=== PATIENT | male | born 1950 | race African-American/Black ===

== ENCOUNTER 2018-06-02 13:09 | Day surgery (SDC) | payer BC, MEDICARE ==
[~2018-06-02] VITALS: Ht 172.7 cm; Wt 71.8 kg
[~2018-06-02 13:09] MED LIST: CIPRO 500MG TA500 MG PO; NO HOME MEDICATIONS
[2018-06-02 13:43] VITALS: BP 150/98; PULSE 60; TEMP 97.9
[2018-06-02 15:05] VITALS: BP 122/78; PULSE 82; TEMP 97.8
[2018-06-02 15:20] VITALS: BP 123/82; PULSE 62
[2018-06-02 15:35] VITALS: BP 128/75; PULSE 61
== END 2018-06-02 16:11 | disposition home or self-care (01) ==
LOC: SDCO 13:09
DX: K52.89 Other specified noninfective gastroenteritis and colitis (principal); D12.0 Benign neoplasm of cecum; Z86.010 Personal history of colon polyps; K62.5 Hemorrhage of anus and rectum; K64.0 First degree hemorrhoids
CPT/HCPCS: J2250; J3010; J7030

== ENCOUNTER 2018-12-22 07:43 | Day surgery (SDC) | payer BC ==
[~2018-12-22] VITALS: Ht 172.7 cm; Wt 72.7 kg
[2018-12-22] MEDS ORDERED: CALCIUM CARBON650 M2 PO (07:56)
[2018-12-22] MEDS ORDERED: STOOL SOFTENER100 M2 PO (07:56)
[2018-12-22] MEDS ORDERED: MULTI VITAMINS1 TAB PO (07:56)
[2018-12-22] MEDS ORDERED: MASON NATURAL2000 IU PO (07:57)
[2018-12-22] MEDS ORDERED: VITAMIN C500 MG PO (07:58)
[2018-12-22] MEDS ORDERED: VITAMIN B125000 MCG PO (07:58)
[2018-12-22] MEDS ORDERED: NATURAL E400 IU PO (07:58)
[2018-12-22] MEDS ORDERED: B-121000 MCG PO (07:59)
[2018-12-22 08:39] VITALS: BP 135/77; PULSE 60; TEMP 97.6
[2018-12-22] MEDS ORDERED: CANASA 1000MG1000 MG RC (09:19)
[2018-12-22 09:20] VITALS: BP 149/80; PULSE 56; TEMP 97.6
--- NOTE | 2018-12-22 09:20 | NUR ---
Patient brought back to bay 5. Alert and oriented, ambulated to chair without difficulty. Denies any pain or nausea. Vital signs WNL. Requesting coffee at this time. Call dale within reach, will continue to monitor.
[2018-12-22 09:35] VITALS: BP 129/80; PULSE 53
[2018-12-22 09:50] VITALS: BP 132/75; PULSE 56
--- NOTE | 2018-12-22 09:50 | NUR ---
Patient states he feels ready to go home. IV discontinued per orders, tolerated well. Discharge instructions reviewed with patient and family. All questions answered. Patient to get dressed at this time.
--- NOTE | 2018-12-22 09:58 | NUR ---
This RN escorted patient down to lobby via ambulation. To be driven home by Hugo.
== END 2018-12-22 09:58 | disposition home or self-care (01) ==
LOC: SDCO 07:43
DX: Z86.010 Personal history of colon polyps (principal); K52.9 Noninfective gastroenteritis and colitis, unspecified; K62.89 Other specified diseases of anus and rectum; K64.0 First degree hemorrhoids
CPT/HCPCS: J7030

== ENCOUNTER 2021-06-27 15:37 | Inpatient (IN) | payer MEDICARE, BC ==
[~2021-06-27] VITALS: Ht 172.7 cm; Wt 69.9 kg
[~2021-06-27 15:37] MED LIST changes: +B-121000 MCG PO; +CALCIUM CARBON650 M2 PO; +CANASA 1000MG1000 MG RC; +MASON NATURAL2000 IU PO; +MULTI VITAMINS1 TAB PO; +NATURAL E400 IU PO; +STOOL SOFTENER100 M2 PO; +VITAMIN B125000 MCG PO; +VITAMIN C500 MG PO
[2021-06-27 16:46] LABS: BASO % 0.1 % (0.0-2.0); GRAN # 5.9 K/mm3 (1.4-6.5); GRAN % 84.1 % (42.2-75.2); HEMATOCRIT 42.6 % (42.0-52.0); HEMOGLOBIN 14.6 g/dl (13.5-18.0); LYMPH # 0.8 K/mm3 (1.2-3.4); LYMPH % 11.5 % (20.0-51.0); MEAN CELL VOLUME 83 fl (80.0-100.0); MEAN CORPUSCULAR HEMOGLOBIN 28 pg (27.0-31.0); MEAN CORPUSCULAR HGB CONC 34 g/dl (33.0-37.0); MEAN PLATELET VOLUME 10.7 fl (7.4-10.4); MONO # 0.3 K/mm3 (0.1-0.6); MONO % 3.7 % (1.7-9.3); PLATELET COUNT 181 K/mm3 (130-400); RED BLOOD COUNT 5.16 M/mm3 (4.20-5.60); REDCELL DISTRIBUTION WIDTH-CV 13.2 % (11.5-14.5)
[2021-06-27 17:11] LABS: ALBUMIN 3.5 gm/dL (3.4-4.8); BILIRUBIN,TOTAL 0.7 mg/dL (0.2-1.2); CALCIUM 8.9 mg/dL (8.4-10.2); CREATININE, serum 1.28 mg/dL (0.72-1.25); POTASSIUM 4.6 mmol/L (3.5-4.5)
[2021-06-28] VITALS (326 sets, daily range): BP systolic 110–121; BP diastolic 69–70; PULSE 70–80; TEMP 97.3–99.1; O2SAT 82–99
[2021-06-28 01:13] LABS: ARTERIAL BLD GAS O2 SATURATION 94.7 % (92-100); ARTERIAL BLD GAS TCO2 CT 21.3; ARTERIAL BLOOD GAS BASE EXCESS -2.9 (-2-2); ARTERIAL BLOOD GAS HCO3 20.3 meq/L (22-26); ARTERIAL BLOOD GAS PCO2 31.2 mmHg (35-45); ARTERIAL BLOOD GAS PO2 76.7 mmHg (80-100); ARTERIAL BLOOD GAS pH 7.43 (7.35-7.45)
--- NOTE | 2021-06-28 09:58 | NUR ---
PATIENT TRANSFERED VIA WHEELCHAIR TO SURGICAL ROOM 346. CORRINE HAN ASSUMED CARE OF PATIENT AT [facility].
--- NOTE | 2021-06-28 11:58 | NUR ---
MR. GUY ARRIVED VIA ED STRETCHER ON AIRVO 60 L 88 % ON NO MEDICATIONS. PT WAS ORIENTED TO THE ICU.
[2021-06-28 14:34] LABS: HEMATOCRIT 40.8 % (42.0-52.0); HEMOGLOBIN 13.8 g/dl (13.5-18.0); MEAN CELL VOLUME 83 fl (80.0-100.0); MEAN CORPUSCULAR HEMOGLOBIN 28 pg (27.0-31.0); MEAN CORPUSCULAR HGB CONC 34 g/dl (33.0-37.0); MEAN PLATELET VOLUME 9.2 fl (7.4-10.4); PLATELET COUNT 240 K/mm3 (130-400); RED BLOOD COUNT 4.89 M/mm3 (4.20-5.60); REDCELL DISTRIBUTION WIDTH-CV 13.5 % (11.5-14.5)
[2021-06-28 14:51] LABS: C-REACTIVE PROTEIN 10.87 mg/dL (0.00-0.50); CALCIUM 8.4 mg/dL (8.4-10.2); CREATININE, serum 0.9 mg/dL (0.72-1.25); MAGNESIUM 2.3 mg/dL (1.6-2.6); POTASSIUM 4.4 mmol/L (3.5-4.5)
--- NOTE | 2021-06-28 20:20 | NUR ---
Assessment complete and charted. Denies neesd. Call light in reach.
[2021-06-29] VITALS (653 sets, daily range): BP systolic 121–134; BP diastolic 75–88; PULSE 86–99; TEMP 97.9–99.3; O2SAT 68–100
--- NOTE | 2021-06-29 03:57 | NUR ---
PATIENT PLACED ON BIPAP AROUND 0315. PATIENT SATURATIONS 87% ON AIRVO. PATIENT ON 14 OVER 8 WITH 75%FIO2
[2021-06-29 05:40] LABS: BASO % 0.1 % (0.0-2.0); GRAN # 8.4 K/mm3 (1.4-6.5); GRAN % 85.7 % (42.2-75.2); HEMATOCRIT 39.8 % (42.0-52.0); LYMPH # 1.1 K/mm3 (1.2-3.4); LYMPH % 10.9 % (20.0-51.0); MEAN CELL VOLUME 87 fl (80.0-100.0); MEAN CORPUSCULAR HEMOGLOBIN 28 pg (27.0-31.0); MEAN CORPUSCULAR HGB CONC 33 g/dl (33.0-37.0); MEAN PLATELET VOLUME 9.5 fl (7.4-10.4); MONO # 0.3 K/mm3 (0.1-0.6); MONO % 2.9 % (1.7-9.3); PLATELET COUNT 278 K/mm3 (130-400); RED BLOOD COUNT 4.59 M/mm3 (4.20-5.60); REDCELL DISTRIBUTION WIDTH-CV 13.5 % (11.5-14.5)
[2021-06-29 05:57] LABS: ALBUMIN 2.5 gm/dL (3.4-4.8); BILIRUBIN,TOTAL 0.6 mg/dL (0.2-1.2); CALCIUM 7.4 mg/dL (8.4-10.2); CREATININE, serum 0.83 mg/dL (0.72-1.25); MAGNESIUM 1.9 mg/dL (1.6-2.6); POTASSIUM 3.8 mmol/L (3.5-4.5); TOTAL PROTEIN 6.1 gm/dL (6.2-8.1)
--- NOTE | 2021-06-29 06:11 | NUR ---
Patient started on bipap during night. Tolerating well. Resting in bed this Am. Call light in reach.
--- NOTE | 2021-06-29 07:19 | NUR ---
Report given to CORRINE Hooks
--- NOTE | 2021-06-29 13:13 | NUR ---
1230 pt placed on AirVo 60L/min - 90%FiO2 for lunch. Pt ate 100% of meal without difficulty. SpO2 while on AirVo 88-93% 1310 pt requested to be placed back on BiPAP
--- NOTE | 2021-06-29 13:38 | NUR ---
Forming Roll Operator contacted patient's daughter, Delores (ph#[phone]) to complete initial intake as patient is on bipap and in contact isolation for covid. Patient lives in [place] with his , Lin (ph#[phone]). SW had attempted to call Lin earlier in the day and left a voicemail. Patient sees Dr. Noe for primary care and obtains medications from [facility] in [place] with no difficulties. Patient does not use any DME and is independent with ADLS. Delores remarks that patient is currently employed. Patient does not have Advance Directives and legal next of kin would be his . SW will continue to follow for discharge needs.
--- NOTE | 2021-06-29 17:42 | NUR ---
Pt's keys and $1,480 carpenter given to pt's son as requested by pt. Pt continues to refuse robitussin antitussive despite almost continuous cough when taking break from BiPAP and placed on AirVo. Pt's daughter and son updated and informed pt is refusing antitussive - family will call during next BiPAP break to encourage pt to take any and all medications that will help pt.
--- NOTE | 2021-06-29 20:20 | NUR ---
Assessment complete and charted. Denies needs. Call light in reach.
[2021-06-30] VITALS (714 sets, daily range): BP systolic 130–146; BP diastolic 81–93; PULSE 68–94; TEMP 97.2–98.8; O2SAT 71–100
--- NOTE | 2021-06-30 05:46 | NUR ---
Patient remained on bipap throughout night. Otherwise uneventful. Call light in reach.
[2021-06-30 06:31] LABS: HEMATOCRIT 42.8 % (42.0-52.0); HEMOGLOBIN 14.3 g/dl (13.5-18.0); MEAN CELL VOLUME 85 fl (80.0-100.0); MEAN CORPUSCULAR HEMOGLOBIN 28 pg (27.0-31.0); MEAN CORPUSCULAR HGB CONC 33 g/dl (33.0-37.0); PLATELET COUNT 297 K/mm3 (130-400); RED BLOOD COUNT 5.03 M/mm3 (4.20-5.60); REDCELL DISTRIBUTION WIDTH-CV 13.2 % (11.5-14.5)
[2021-06-30 06:39] LABS: C-REACTIVE PROTEIN 7.77 mg/dL (0.00-0.50); CALCIUM 8.7 mg/dL (8.4-10.2); CREATININE, serum 0.89 mg/dL (0.72-1.25); POTASSIUM 4.6 mmol/L (3.5-4.5)
--- NOTE | 2021-06-30 07:25 | NUR ---
Report given to Amy Miranda
--- NOTE | 2021-06-30 08:00 | NUR ---
ASSUMED CARE FROM GEOFFREY CASTLE. CHECK ALL IV SITES AND SETTING ON BIPAP AND AIRVO. PT REQUESTED TO ORDER BREAKFAST. PATIENT IS COMFORTABLE AND IN NO APPARENT DISTRESS. WILL CONTINUE TO MONITOR FOR INCREASE OXYGEN NEED.
[2021-06-30 08:13] LABS: LYMPHOCYTE 9 % (20.0-51.0); NEUTROPHILS 89 % (42.0-75.2)
[2021-06-30 08:14] LABS: PLATELET ESTIMATE NORMAL (NORMAL)
--- NOTE | 2021-06-30 12:56 | NUR ---
Chaplain wall and offered support with patient.
--- NOTE | 2021-06-30 17:22 | NUR ---
MR. PINA RIGHT UPPER ARM PICC WILL NOT PULL BACK BLOOD.
[2021-06-30 18:22] LABS: BILIRUBIN,DIRECT 0.3 mg/dL (0.0-0.5); BILIRUBIN,TOTAL 0.6 mg/dL (0.2-1.2); TOTAL PROTEIN 7.5 gm/dL (6.2-8.1)
[2021-06-30 18:27] LABS: ARTERIAL BLD GAS TCO2 CT 23.8; ARTERIAL BLOOD GAS BASE EXCESS 0.2 (-2-2); ARTERIAL BLOOD GAS HCO3 22.8 meq/L (22-26); ARTERIAL BLOOD GAS PCO2 31.6 mmHg (35-45); ARTERIAL BLOOD GAS PO2 52.7 mmHg (80-100); ARTERIAL BLOOD GAS pH 7.48 (7.35-7.45)
--- NOTE | 2021-06-30 19:42 | NUR ---
Resting in bed. Denies needs. Assessment complete and charted. Patient alert and orientated x4
[2021-06-30 22:21] LABS: ARTERIAL BLD GAS O2 SATURATION 93.1 % (92-100); ARTERIAL BLD GAS TCO2 CT 29.1; ARTERIAL BLOOD GAS BASE EXCESS 3.5 (-2-2); ARTERIAL BLOOD GAS HCO3 27.9 meq/L (22-26); ARTERIAL BLOOD GAS PCO2 41.3 mmHg (35-45); ARTERIAL BLOOD GAS PO2 70.4 mmHg (80-100); ARTERIAL BLOOD GAS pH 7.45 (7.35-7.45)
[2021-07-01] VITALS (735 sets, daily range): BP systolic 122–150; BP diastolic 75–96; PULSE 80–148; TEMP 98.4–99.4; O2SAT 60–100
[2021-07-01 04:58] LABS: ARTERIAL BLOOD GAS BASE EXCESS 2.5 (-2-2); ARTERIAL BLOOD GAS HCO3 26.2 meq/L (22-26); ARTERIAL BLOOD GAS PCO2 37.8 mmHg (35-45); ARTERIAL BLOOD GAS PO2 72.2 mmHg (80-100); ARTERIAL BLOOD GAS pH 7.45 (7.35-7.45)
[2021-07-01 05:16] LABS: BASO % 0.2 % (0.0-2.0); GRAN # 10.5 K/mm3 (1.4-6.5); GRAN % 89.4 % (42.2-75.2); HEMATOCRIT 41.8 % (42.0-52.0); LYMPH # 0.8 K/mm3 (1.2-3.4); LYMPH % 7.1 % (20.0-51.0); MEAN CELL VOLUME 86 fl (80.0-100.0); MEAN CORPUSCULAR HEMOGLOBIN 29 pg (27.0-31.0); MEAN CORPUSCULAR HGB CONC 34 g/dl (33.0-37.0); MEAN PLATELET VOLUME 9.6 fl (7.4-10.4); MONO # 0.3 K/mm3 (0.1-0.6); MONO % 2.4 % (1.7-9.3); PLATELET COUNT 288 K/mm3 (130-400); RED BLOOD COUNT 4.86 M/mm3 (4.20-5.60); REDCELL DISTRIBUTION WIDTH-CV 13.3 % (11.5-14.5)
[2021-07-01 05:34] LABS: ALBUMIN 2.8 gm/dL (3.4-4.8); BILIRUBIN,TOTAL 0.7 mg/dL (0.2-1.2); CALCIUM 8.8 mg/dL (8.4-10.2); CREATININE, serum 0.83 mg/dL (0.72-1.25); MAGNESIUM 2.1 mg/dL (1.6-2.6); POTASSIUM 4.3 mmol/L (3.5-4.5)
--- NOTE | 2021-07-01 05:55 | NUR ---
Patient remained on bipap throughout night. Patient is alert and orientated. Denied needs this AM. Would like breakfast when kitchen is open. Call light in reach.
--- NOTE | 2021-07-01 07:05 | NUR ---
Report given to CORRINE Chadwick
--- NOTE | 2021-07-01 07:11 | NUR ---
RECEIVED BEDSIDE SHIFT REPORT FROM CORRINE HALE. PATIENT HAS BEEN MORE COMFORTABLE ON BIPAP ALL NIGHT AND NURSE REPORTS THAT PATIENT STANDS INDEPENDENTLY TO USE URINAL. VITAL SIGNS STABLE FOR PATIENT. CHUCHO PICC AND 20g PERIPHERAL STILL IN PLACE AND PATENT IN [place]. REPORT STATED THERE WAS DIFFICULTY WITH [place]. WILL ASSESS. PATIENT CURRENTLY RESTING IN BED WITH EYES CLOSED.
[2021-07-01 14:20] LABS: COLLECTION METHOD CLEAN CATCH
[2021-07-01 15:18] LABS: PH 5 (5-8); URINE APPEARANCE Hazy (CLEAR/HAZY); URINE COLOR Yellow (YELLOW); URINE GLUCOSE 3+ (NEGATIVE); URINE PROTEIN(semi-quant) Negative (NEGATIVE)
[2021-07-01 15:19] LABS: URINE BILIRUBIN Negative (NEGATIVE); URINE BLOOD Negative (NEGATIVE); URINE KETONE Negative (NEGATIVE); URINE LEUKOCYTE ESTERASE Negative (NEGATIVE); URINE NITRATE Negative (NEGATIVE); URINE UROBILINOGEN Negative (NEGATIVE)
[2021-07-01 16:10] LABS: SQUAMOUS EPITHELIAL None Seen /hpf (0-10); URINE BACTERIA None Seen (NONE SEEN); URINE RBC None Seen /hpf (0-2)
--- NOTE | 2021-07-01 19:51 | NUR ---
Patient sitting on the side of the bed. Currently wearing BiPap with scuba mask at 100% FiO2 , tolerating well. Oral temperature of 99.4 F, with resting pulse rate in 120s, sinus rhythm. Patient briefly tachycardic up to 140s with activity. All other vitals within normal limits. Patient denies any pain, but reports severe thirst and calls several times for breaks from BiPap for sips of water.
--- NOTE | 2021-07-01 20:24 | NUR ---
Patient attempting to climb out of bed and tearing off BiPap mask stating, "I can't breathe," with oxygen saturation 95-99%. Per report received from [facility], patient has been tachycardic ranging 110-120s all shift. Patient HR currently 140s and rising with episodes of panic. ANUPAMA physician notified. Received orders for a one time dose of ativan now and to initiate a precedex drip. Hospitalist, Lynne, afua.
[2021-07-02] VITALS (664 sets, daily range): BP systolic 102–126; BP diastolic 69–81; PULSE 80–108; TEMP 97.2–99.8; O2SAT 50–100
[2021-07-02 06:05] LABS: HEMATOCRIT 42.5 % (42.0-52.0); HEMOGLOBIN 13.9 g/dl (13.5-18.0); MEAN CELL VOLUME 86 fl (80.0-100.0); MEAN CORPUSCULAR HEMOGLOBIN 28 pg (27.0-31.0); MEAN CORPUSCULAR HGB CONC 33 g/dl (33.0-37.0); MEAN PLATELET VOLUME 9.5 fl (7.4-10.4); RED BLOOD COUNT 4.93 M/mm3 (4.20-5.60); REDCELL DISTRIBUTION WIDTH-CV 13.2 % (11.5-14.5)
[2021-07-02 06:08] LABS: PLATELET COUNT 173 K/mm3 (130-400)
[2021-07-02 06:23] LABS: CALCIUM 8.6 mg/dL (8.4-10.2); CREATININE, serum 1.34 mg/dL (0.72-1.25); MAGNESIUM 2.2 mg/dL (1.6-2.6); POTASSIUM 4.5 mmol/L (3.5-4.5)
[2021-07-02 06:41] LABS: BAND 17 % (0-10); LYMPHOCYTE 26 % (20.0-51.0); NEUTROPHILS 50 % (42.0-75.2)
[2021-07-02 06:42] LABS: PLATELET ESTIMATE NORMAL (NORMAL)
--- NOTE | 2021-07-02 20:11 | NUR ---
Patient did well today and was able to switch to Airvo for meals and maintain sats in the upper 80s/lower 90s. Decreased Precedex and turned off this morning per Dr. Lott and patient tolerated the BiPAP while wearing it; his heart rate did become tachycardic, however, and was over 100 most of the day once Precedex was stopped.
[2021-07-03] VITALS (652 sets, daily range): BP systolic 132–151; BP diastolic 87–99; PULSE 84–109; TEMP 97.2–98.2; O2SAT 52–100
[2021-07-03 05:00] LABS: ARTERIAL BLOOD GAS PCO2 38.4 mmHg (35-45); ARTERIAL BLOOD GAS PO2 65.7 mmHg (80-100); ARTERIAL BLOOD GAS pH 7.47 (7.35-7.45)
[2021-07-03 05:01] LABS: ARTERIAL BLD GAS O2 SATURATION 92.6 % (92-100); ARTERIAL BLOOD GAS BASE EXCESS 3.6 (-2-2); ARTERIAL BLOOD GAS HCO3 27.3 meq/L (22-26)
[2021-07-03 06:17] LABS: HEMATOCRIT 41.9 % (42.0-52.0); HEMOGLOBIN 13.8 g/dl (13.5-18.0); MEAN CELL VOLUME 86 fl (80.0-100.0); MEAN CORPUSCULAR HEMOGLOBIN 28 pg (27.0-31.0); MEAN CORPUSCULAR HGB CONC 33 g/dl (33.0-37.0); MEAN PLATELET VOLUME 10.2 fl (7.4-10.4); PLATELET COUNT 197 K/mm3 (130-400); RED BLOOD COUNT 4.88 M/mm3 (4.20-5.60); REDCELL DISTRIBUTION WIDTH-CV 13.2 % (11.5-14.5)
[2021-07-03 06:38] LABS: ALBUMIN 2.6 gm/dL (3.4-4.8); BILIRUBIN,TOTAL 0.7 mg/dL (0.2-1.2); CALCIUM 8.4 mg/dL (8.4-10.2); CREATININE, serum 0.92 mg/dL (0.72-1.25); MAGNESIUM 2.3 mg/dL (1.6-2.6); POTASSIUM 4.3 mmol/L (3.5-4.5); TOTAL PROTEIN 6.8 gm/dL (6.2-8.1)
[2021-07-03 06:44] LABS: BILIRUBIN,DIRECT 0.3 mg/dL (0.0-0.5)
[2021-07-03 07:52] LABS: BAND 16 % (0-10); LYMPHOCYTE 7 % (20.0-51.0); NEUTROPHILS 77 % (42.0-75.2); PLATELET ESTIMATE NORMAL (NORMAL)
--- NOTE | 2021-07-03 08:41 | NUR ---
The patient remains on the bipap. SW attempted to contact the patient's to update. She did not answer. SW then contacted the patient's daughter, Delores, to follow up. Delores would just like a clinical update from the RN or doctor about how the patient is doing and it he is improving or not. SW to notify the patient's RN.
--- NOTE | 2021-07-03 11:42 | NUR ---
PATIENT DOING WORSE TODAY FAR EATING ON AIRVO IS CONCERNED; HE HAD MULTIPLE BOUTS OF COUGHING AND HIS O2 SATS WERE MID TO LOW 80S TO HIGH 70S, WHICH IS WORSE THAN IT WAS YESTERDAY. WILL ASK DR. CEJA WHAT HE THINKS ABOUT PATIENT CONTINUING EATING SOLID FOODS.
--- NOTE | 2021-07-03 13:30 | NUR ---
Patient did not do well this morning while eating breakfast; he had multiple coughing fits and desatted while on Airvo, at times into the high 70%s. Called Dr. Lott who wanted him to stop eating solid foods and have TPN started; called anne and relayed this information. Anne wanted to have speech onboard as well for a swallow study; called Janelle with
--- NOTE | 2021-07-03 19:15 | NUR ---
Received report from CORRINE Brumfield.
--- NOTE | 2021-07-03 21:30 | NUR ---
Patient resting quietly in bed. Continues to wear BiPap at 80% FiO2 ; patient tolerating relatively well. Patient tachycardic ranging 110-120s. Other vitals within normal limits. He denies any pain but reports severe thirst and requests frequent breaks from BiPap for ice water. Patient tolerates ice chips and water well without difficulty or coughing. Patient desats 60-70s when removing mask but recovers to mid-high 90s fairly quickly.
[2021-07-04] VITALS (59 sets, daily range): BP systolic 53–135; BP diastolic 38–98; PULSE 111–124; TEMP 97.4–98.6; O2SAT 89–100
[2021-07-04 04:29] LABS: ARTERIAL BLD GAS O2 SATURATION 94.9 % (92-100); ARTERIAL BLD GAS TCO2 CT 24.7; ARTERIAL BLOOD GAS BASE EXCESS -0.3 (-2-2); ARTERIAL BLOOD GAS HCO3 23.6 meq/L (22-26); ARTERIAL BLOOD GAS PCO2 36.3 mmHg (35-45); ARTERIAL BLOOD GAS PO2 73.7 mmHg (80-100); ARTERIAL BLOOD GAS pH 7.43 (7.35-7.45)
[2021-07-04 05:30] LABS: HEMATOCRIT 46.2 % (42.0-52.0); HEMOGLOBIN 15.1 g/dl (13.5-18.0); MEAN CELL VOLUME 86 fl (80.0-100.0); MEAN CORPUSCULAR HEMOGLOBIN 28 pg (27.0-31.0); MEAN CORPUSCULAR HGB CONC 33 g/dl (33.0-37.0); MEAN PLATELET VOLUME 10.4 fl (7.4-10.4); PLATELET COUNT 206 K/mm3 (130-400); RED BLOOD COUNT 5.36 M/mm3 (4.20-5.60); REDCELL DISTRIBUTION WIDTH-CV 13.2 % (11.5-14.5)
[2021-07-04 05:43] LABS: C-REACTIVE PROTEIN 10.75 mg/dL (0.00-0.50); CALCIUM 8.7 mg/dL (8.4-10.2); CREATININE, serum 1.07 mg/dL (0.72-1.25); MAGNESIUM 2.4 mg/dL (1.6-2.6); PHOSPHOROUS 2.9 mg/dL (2.3-4.7); POTASSIUM 4.2 mmol/L (3.5-4.5)
[2021-07-04 06:39] LABS: BAND 11 % (0-10); LYMPHOCYTE 2 % (20.0-51.0); NEUTROPHILS 86 % (42.0-75.2); PLATELET ESTIMATE NORMAL (NORMAL)
--- NOTE | 2021-07-04 09:14 | NUR ---
germination worker contacted daughter, Delores, and provided education on legal next of kin and that a durable power of assistant county attorney for health care can be completed if patient so wishes to do this. Delores stated that her mother, patient's spouse, mostly speaks welsh and that at this time, the daughters are receiving information from ICU/physician teams. A family meeting is expected today (in person) with spouse, two daughters and one son.
--- NOTE | 2021-07-04 14:29 | NUR ---
FAMILY MEETING STARTED AT 1220. PRIOR TO THAT THE PATIENT WAS ADAMANT THAT HE WANTED TO TAKE HIS BIPAP MASK OFF AND GO HOME. HE IS ALERT AND ORIENTED AND UNDERSTAND THAT THAT MIGHT KILL HIM. HE AGREES AFTER MANY CONVERSATIONS TO LEAVE THE BIPAP MASK ON UNTIL HIS FAMILY ARRIVES FOR THE FAMILY MEETING. 2 DAUGHTERS, A SON AND HIS CONSTRUCTION MILLWRIGHT ARRIVED AT 1220. MANY QUESITONS ANSWERED BY MYSELF, DR. LEI, GOMEZ PALLIATIVE CARE RN AND DONAL PALLITAIVE CARE RN ABOUT THE PATIENTS CURRENT CONDITION WELL THEIR OPTIONS FOR CARE. AT THIS TIME 1429 THE PATIENT CONTINUES TO WANT TO TAKE HIS BIPAP MASK OFF AND GO HOME.
--- NOTE | 2021-07-04 17:00 | NUR ---
1610 FAMILY MEETING WITH AUDRA URRUTIA, SOCIAL WORK, LOUIS CASH, TRAFFIC SUPERVISOR, ZEUS CASTLE, AND MYSELF. THE 2 DAUGHTERS AND SON IN PERSON, ANOTHER SON AND ON THE PHONE. ARE ASKING IF THEY CAN TAKE THE PATIENT HOME AFTER HE TAKES THE BIPAP OFF. DISCUSSION WAS HAD ABOUT WHAT THAT WOULD BE LIKE FOR THEM WELL THE PATIENT AT THIS TIME AND THAT IT WOULD BE UNSAFE FOR THE PATIENT. THE LOGISTICS OF HAVING THE PATIENT OUTSIDE THE HOSPITAL WAS ALSO DISCUSSED. WE ALSO DISCUSSED THAT WE ARE NOT ALLOWED BY LAW TO GO AGAINST THE PATIENT'S WISHES. IT IS A PATIENT RIGHT TO REFUSE. SINCE HE IS IN HIS RIGHT MIND, ALERT AND ORIENTED, HE STILL MANTAINS THE RIGHT TO REFUSE. THE PATIENT HAS BEEN VERY ADAMANT THAT HE DOES NOT WANT TO WEAR HIS BIPAP ANY MORE. WHEN THIS DISCUSSION IS HAD WITH THE PATIENT THE PATIENT STATES "I KNOW I WILL . I JUST WANT TO GO HOME ANYWAY". AT THE END OF THE CONVERSATION (1700) THE FAMILY CAME TO THE CONCLUSION THAT THEY WOULD ALLOW THE PATIENT TO TAKE HIS MASK OFF WITHOUT COERSCING HIM TO PUT IT BACK ON. MEDICATIONS CAN BE GIVEN IF NEEDED TO MAKE HIM COMFORTABLE. THE PATIENTS WILL COME TO THE BEDSIDE. DR. LEI NOTIFIED OF THIS DECISION. AND COMFORT CARE ORDERS WERE ENTERED/VERIFIED.
--- NOTE | 2021-07-04 17:21 | NUR ---
(3822 07/04/21)I WAS PASSING BY THE PATIENTS ROOM HEADING TO ANOTHER ROOM IN THE ICU WHEN THE PT WAVED ME IN. I WENT IN TO THE ROOM AFTER GOWNING UP, AND THE PATIENT SAID HE WAS GOING TO LEAVE AND TOLD ME TO TAKE HIS BIPAP MASK OFF. I EXPLAINED THAT HE WOULD NOT MAKE IT TO THE DOOR DUE TO HIS CRITICAL CONDITION AND DEPENDENCE ON HIGH OXYGEN LEVELS. HE SAID THAT HE DIDNT CARE, HE WANTED TO AND THAT WAS HIS CHOICE. HE SAID THAT GOD WAS CALLING HIM HOME AND HE HAD MADE THE CHOICE TO NO LONGER RECEIVE CARE. I EXPLAINED THAT I COULD TELL THE ICU DIRECTOR BUT I WAS NOT ABLE TO TAKE THE MASK OFF AT THAT TIME. HE CALMED DOWN A BIT AND SHOOK HIS HEAD IN AGGREEMENT. I LEFT AND EXPLAINED TO ZEUS JIMENEZ AND SANDIP SAGASTUME WHAT HAD HAPPENED AND THEN CONTINUED ON.
--- NOTE | 2021-07-04 18:30 | NUR ---
This morning while getting vitals and doing 0800 assessment, Dr. Lott came in and spoke with the patient, informing him that the next step in his care would be to be put on a ventilator; patient repeatedly shook his head no, which Dr. Lott then confirmed verbally with the patient that he was refusing to be put on the ventilator. Patient stated that he "had morgan in his God", and stated that he "wanted to see his God". I had many conversations throughout the morning with the patient who was insisting that the mask be removed and that he wanted to go home. When asked if he was saying that he wanted to leave, he stated "yes, I want to go home". I explained to the patient that we are not able to keep him here, but that we did not feel that it was in his best interest for him to go home, so if he left he would be leaving against medical advice, and would be required to sign AMA paperwork. Family had been called at that point and asked to come in to have a family meeting to discuss plan of care, which was scheduled for noon. The rest of the morning was spent having multiple conversations with the patient about why he needed to keep the BiPAP mask on, and that his family was coming at noon and wanted to talk to him, and that he needed to keep the mask on so he was able to talk to them when he arrived. He stated that he "wanted to go home" and that we should tell his family "to turn around" because he "had morgan in his God". He also repeatedly stated throughout the morning that he was "ready to see his God" and that his "God is almighty" and that he "has been here before and his God took care of him". He decided to change his code status to DNR, and did not want any interventions done to save him should he code, and he also was still insisting that he was leaving AMA. Family arrived shortly after 1200 and was allowed to go into the patient's room to discuss what the plan was going to be going forward. It is my understanding that the patient was insisting that he was not going to be intubated, his son was insisting that everything be done, and that his daughters weren't sure how to proceed. Tiffanie then spent several hours in the patient's room answering all their questions in regards to care.
[2021-07-04 19:52] LABS: ARTERIAL BLD GAS TCO2 CT 26.5; ARTERIAL BLOOD GAS BASE EXCESS 1.8 (-2-2); ARTERIAL BLOOD GAS HCO3 25.4 meq/L (22-26); ARTERIAL BLOOD GAS PCO2 36.5 mmHg (35-45); ARTERIAL BLOOD GAS PO2 76.8 mmHg (80-100); ARTERIAL BLOOD GAS pH 7.46 (7.35-7.45)
--- NOTE | 2021-07-04 20:00 | NUR ---
THREE OF PT'S CHILDREN AND AT THE BEDSIDE. PER REPORT, PT HAD BEEN UNDECIDED ABOUT INTUBATION TODAY. AT THIS TIME, PT IS NOT ORIENTED TO TIME/PLACE. MELECIOY WANTS INTUBATION, AND PT AGREES. PLAN IN PLACE TO INTUBATE SOON, ANESTHESIA CALLED. MANDEEP SALES OPERATIONS COORDINATOR ON FLOOR WELL AND HAS TALKED TO FAMILY. CONSENT GIVEN FOR INTUBATION AND ARTERIAL LINE PLACEMENT. PT CURRENTLY ON BIPAP, RESTING WITH EYES CLOSED. PREPARING ROOM FOR INTUBATION, WILL FOLLOW.
--- NOTE | 2021-07-04 20:00 | NUR ---
RUE NOTED TO BE SWOLLEN AND FIRM. NOTIFIED ANAHI KAUFMAN. VENOUS STUDY ORDERED FOR NEXT AM. BOTH LUMENS OF PICC LINE FLUSHING AND HAVE BLOOD RETURN.
--- NOTE | 2021-07-04 20:12 | NUR ---
mold release worker along with Carolyn risk management, and Tiffanie Devine(ICU director and dealer relationship manager) met with patient's son and two daughters. Patient's son that lives in [place] was on speaker phone. Worker and nurses discussed patient's verbalized wishes to have the bipap removed and his understanding of possible due to removal of the bi pap and the hospital's need to honor patient's wishes. Children discussed their need to convince patient to keep bipap on so that he could have a "chance of survival". Staff offered emotional support and education on patient's illness as children explored taking patient home AMA due to patient's verbalized request to return home this date. Children came to the conclusion that after their mother arrived at the hospital, they would spend time with patient and discuss possible medication use while in comfort care.
--- NOTE | 2021-07-04 20:57 | NUR ---
Patient and patients family had all agreed that he was going to be going comfort care and plans were in place to proceed accordingly. Morphine and ativan had been ordered, and we were waiting on the patient's to arrive so we could take the mask off and give comfort care meds. Patient's and children were in the room, I proceeded to take off the mask, then while going to get the meds, was asked to hurry back over and put the mask back on. Complied with patient's wishes, placed the biPAP back on him, and asked him if he recalled the conversation that he had with Dr. Lott this morning in regards to being intubated. Patient shook his head yes, and to verify, I asked the patient if he remembered the conversation specifically in regards to being put on a ventilator, which was the machine that was going to breathe for him, and that tubes would be placed down his throat and he would be sedated. He repeated that yes, he remembered. I then asked patient if he wanted to be intubated, and he stated yes. I also asked about his code status, specifically, if he were to stop breathing and/or his heart were to stop beating, does he want CPR and everything that goes along with us resuscitating him, to which he nodded his head and said yes. I left the patient's room to inform the charge nurse that he had changed his mind and wanted to be intubated, and then went back into patients room to tell family that they would need to leave so we could start the procedure. While in the room, the patient again stated that he wanted to take the mask off, and the family told me that he "keeps changing his mind" but that he "already told me that he wanted to be placed on the ventilator". I explained to the family that just because he told me previously that he wanted to be intubated, he was allowed to change his mind, and that I had to go by what he wanted to do, and that if he changed his mind, he was allowed to do so and we had to respect his wishes. Left the patients room to see how to proceed; anesthesia not notifed or told to come over for intubation as patient was actively trying to take his mask off while I was in the room. At this point it was after shift change and I still needed to give report to Marivel on both my patients. I did not go back into the room after that, and Marivel took over care.
--- NOTE | 2021-07-04 21:00 | NUR ---
MEDS GIVEN PER ANESTHESIA FOR INTUBATION FOLLOWS, SUCCINYLCHOLINE 100MG, LIDOCAINE 100MG, PROPOFOL 100MG, VERSED 2MG, FENTANYL 50MCG, ROCURONIUM 5MG. ALL BROUGHT BY AND ADMINISTERED BY PROVIDER.
[2021-07-04 22:28] LABS: ARTERIAL BLD GAS O2 SATURATION 99.5 % (92-100); ARTERIAL BLD GAS TCO2 CT 27.2; ARTERIAL BLOOD GAS BASE EXCESS 1.7 (-2-2); ARTERIAL BLOOD GAS PCO2 39.7 mmHg (35-45); ARTERIAL BLOOD GAS pH 7.43 (7.35-7.45)
[2021-07-04 22:29] LABS: ARTERIAL BLOOD GAS PO2 256.4 mmHg (80-100)
--- NOTE | 2021-07-04 22:30 | NUR ---
PT'S FAMILY LEFT ROOM BY 2019, CONSENTS SIGNED FOR ARTERIAL LINE PLACEMENT AND INTUBATION. LUCIANO IRAHETA CRNA ARRIVED BY 2049. PT INTUBATED AT 2099 WITH 7.5 ET TUBE, 23 AT THE LIP. OG ALSO PLACED, 50 AT THE LIP. CHEST XRAY VERIFIED PLACEMENT OF BOTH. LEVOPHED INITIATED RIGHT AWAY DUE TO SIGNIFICANT BP DROP. FIRE CONTROLMAN ALSO ADMINISTERED NEOSYNEPHRINE. PROPOFOL AND FENTANYL INITIATED AT 2114, PT COUGHING/FIGHTING VENT. CONTINUED TO TITRATE TO GOAL SEDATION. AT TIME OF 2229, BP STABLE WITH SBP > 90, BRIGIDO SCORE -1 TO -2. HUNTER CATHETER PLACED, URINE RETURN OF ABOUT 20ML. PT HAD JUST VOIDED PRE INTUBATION OF 300ML. BILAT WRIST RESTRAINTS IN PLACE FOR PT'S SAFETY. WILL CONTINUE TO MONITOR, TURN PT AND PERFORM ORAL CARE ORDERED.
--- NOTE | 2021-07-04 22:30 | NUR ---
LUCIANO IRAHETA TAXICAB COORDINATOR ATTEMPTED ARTERIAL LINE X3, UNSUCCESSFUL. WILL CONTINUE TO MONITOR AND TITRATE PRESSORS VIA NIBP TONIGHT.
[2021-07-05] VITALS (296 sets, daily range): BP systolic 84–115; BP diastolic 65–90; PULSE 89–112; TEMP 97.6–99.6; O2SAT 95–100
[2021-07-05 04:07] LABS: ARTERIAL BLD GAS O2 SATURATION 94.4 % (92-100); ARTERIAL BLD GAS TCO2 CT 26.8; ARTERIAL BLOOD GAS BASE EXCESS 0.6 (-2-2); ARTERIAL BLOOD GAS HCO3 25.6 meq/L (22-26); ARTERIAL BLOOD GAS PCO2 42.2 mmHg (35-45); ARTERIAL BLOOD GAS PO2 76.7 mmHg (80-100)
[2021-07-05 05:47] LABS: HEMATOCRIT 39.5 % (42.0-52.0); MEAN CELL VOLUME 86 fl (80.0-100.0); MEAN CORPUSCULAR HEMOGLOBIN 28 pg (27.0-31.0); MEAN CORPUSCULAR HGB CONC 33 g/dl (33.0-37.0); MEAN PLATELET VOLUME 10.6 fl (7.4-10.4); PLATELET COUNT 153 K/mm3 (130-400); RED BLOOD COUNT 4.59 M/mm3 (4.20-5.60); REDCELL DISTRIBUTION WIDTH-CV 13.3 % (11.5-14.5)
[2021-07-05 05:50] LABS: HEMOGLOBIN 12.9 g/dl (13.5-18.0)
[2021-07-05 05:59] LABS: CALCIUM 8.1 mg/dL (8.4-10.2); CREATININE, serum 1.2 mg/dL (0.72-1.25); POTASSIUM 4.8 mmol/L (3.5-4.5)
[2021-07-05 06:24] LABS: ANISOCYTOSIS 1+; BAND 7 % (0-10); LYMPHOCYTE 4 % (20.0-51.0); NEUTROPHILS 86 % (42.0-75.2)
--- NOTE | 2021-07-05 07:22 | NUR ---
RECEIVED BEDSIDE SHIFT REPORT FROM CORRINE DODGE. PATIENT IS SEDATED AND INTUBATED WITH RIGHT UPPER ARM PICC STILL IN PLACE. PER REPORT, PATIENT SHOULD BE GETTING DOPPLER ULTRASOUND ON RIGHT ARM TODAY FOR SWELLING AND STIFFNESS. PATIENT IS HYPORTENSIVE AND TACHYCARDIC CURRENTLY. HUNTER CATHETER IN PLACE PATENT AND DRAINING TO GRAVITY.
--- NOTE | 2021-07-05 08:20 | NUR ---
DR. CEJA AT BEDSIDE. DISCUSSED EVENTS OF PREVIOUS NIGHT AND NEW FINDINGS OF RIGHT ARM SWELLING. DOPPLER ORDERED LAST NIGHT. ORDERS RECEIVED. TREATMENT PLAN IN PROGRESS.
--- NOTE | 2021-07-05 08:30 | NUR ---
PICC intact right upper arm with large amount of dried reddish drainage noted on disk, sterile dressing change done. right arm is swollen with firmness from elbow to wrist. ultrasond has been ordered. konrad wrap removed. advised elevation, rest, and heat. await results of ultasound.
--- NOTE | 2021-07-05 09:22 | NUR ---
MONICA NOTIFIED THIS NURSE OF POSITIVE AND EXTENSIVE DVT IN RUE.
--- NOTE | 2021-07-05 10:12 | NUR ---
VASOPRESSIN PLACED ON STANDBY TO ASSESS BLOOD PRESSURE TOLERANCE.
--- NOTE | 2021-07-05 11:50 | NUR ---
NILSA DAVILA [facility] NOTIFIED THIS NURSE OF NEW TUBEFEEDING ORDERS PLACED TO INITIATE.
--- NOTE | 2021-07-05 13:50 | NUR ---
RECEIVED CALL FROM PATIENT'S DAUGHTER FOR UPDATE ON CURRENT PATIENT'S STATUS. WANTED TO DO A VIDEO CALL AND SCHEDULED ONE FOR 1600.
--- NOTE | 2021-07-05 14:40 | NUR ---
WAS NOTIFIED OF PATIENT'S SON WANTING TO VISIT THE PATIENT IN PERSON. EXPLAINED TO SON THAT PATIENT IS NOT ALLOWED VISITORS BECAUSE OF COVID DIAGNOSIS. HE ASKED TO SPEAK TO SOMEONE WHO COULD MAKE A DECISION ON A "BETTER ALTERNATIVE". INFORMED SON THAT THIS WAS THE BEST ALTERNATIVE TO PREVENT CONTAMINATION AND SPREAD OF VIRUS. SON STATED THAT HE DROVE 13 HOURS AND THIS NURSE STATED THAT HE SHOULD HAVE CALLED BEFORE DRIVING ALL THAT WAY AND GOTTEN AN UPDATE FROM FAMILY ABOUT HOSPITAL POLICIES. ALSO EXPLAINED THAT A FAMILY MEETING OCCURRED YESTERDAY AND THAT WE WOULD BE HAVING A VIDEO CALL THIS AFTERNOON. HE WANTED TO SPEAK TO THE FIRE ALARM REPAIRER AT THIS NURSE'S SUGGESTION AND THIS NURSE WENT TO GET CORRINE SCHULZ.
--- NOTE | 2021-07-05 17:00 | NUR ---
PATIENT WILL BEGIN SEDATION VACATIONS AFTER 24 HOURS OF INTUBATION
--- NOTE | 2021-07-05 18:12 | NUR ---
RECEIVED CALL FROM PATIENT'S DAUGHTER WANTING TO KNOW WHAT MEDICATION'S HER FATHER WAS ON. THIS NURSE WENT THROUGH eMAR WITH DAUGHTER AND EXPLAINED EACH MEDICATION THE PATIENT WAS CURRENTLY TAKING.
[2021-07-06] VITALS (669 sets, daily range): BP systolic 74–158; BP diastolic 50–90; PULSE 93–137; TEMP 97.9–100.2; O2SAT 67–100
[2021-07-06 03:49] LABS: ARTERIAL BLD GAS O2 SATURATION 98.4 % (92-100); ARTERIAL BLD GAS TCO2 CT 28.7; ARTERIAL BLOOD GAS BASE EXCESS 2.6 (-2-2); ARTERIAL BLOOD GAS HCO3 27.4 meq/L (22-26); ARTERIAL BLOOD GAS PCO2 42.9 mmHg (35-45); ARTERIAL BLOOD GAS pH 7.42 (7.35-7.45)
[2021-07-06 03:51] LABS: ARTERIAL BLOOD GAS PO2 130.5 mmHg (80-100)
--- NOTE | 2021-07-06 05:45 | NUR ---
SEDATION VACATION COMPLETE, PT WENT FROM VERY SEDATED TO AGITATED QUICKLY, SAT UP IN BED, COUGHING. SEDATION INCREASED BACK TO PREVIOUS LEVEL. NO MEANINGFUL RESPONSE OR COOPERATION FROM PT. WILL CONTINUE TO MONITOR.
[2021-07-06 06:38] LABS: HEMATOCRIT 37.8 % (42.0-52.0); HEMOGLOBIN 12.2 g/dl (13.5-18.0); MEAN CELL VOLUME 88 fl (80.0-100.0); MEAN CORPUSCULAR HEMOGLOBIN 28 pg (27.0-31.0); MEAN CORPUSCULAR HGB CONC 32 g/dl (33.0-37.0); MEAN PLATELET VOLUME 10.8 fl (7.4-10.4); PLATELET COUNT 194 K/mm3 (130-400); REDCELL DISTRIBUTION WIDTH-CV 13.7 % (11.5-14.5)
[2021-07-06 06:54] LABS: CALCIUM 7.8 mg/dL (8.4-10.2); CREATININE, serum 1.17 mg/dL (0.72-1.25); POTASSIUM 4.7 mmol/L (3.5-4.5)
--- NOTE | 2021-07-06 07:32 | NUR ---
RECEIVED BEDSIDE SHIFT REPORT FROM CORRINE DODGE. PATIENT IS RESTING IN BED WITH EYES CLOSED. STILL SEDATED AND INTUBATED. PATIENT HAD SAT UP AND ATTEMPTED TO EXTUBATE SELF THIS A.M. PER REPORT. OTHER GUZMÁN STABLE AND VSS. RIGHT UPPER ARM PICC, HUNTER CATHETER AND PERIPHERAL IV STILL IN PLACE, PATENT. SEE GTT TITRATION FLOWSHEET.
[2021-07-06 08:08] LABS: BAND 5 % (0-10)
[2021-07-06 08:09] LABS: LYMPHOCYTE 2 % (20.0-51.0); NEUTROPHILS 92 % (42.0-75.2)
[2021-07-06 08:10] LABS: HYPOCHROMIA 1+; PLATELET ESTIMATE NORMAL (NORMAL)
--- NOTE | 2021-07-06 08:20 | NUR ---
DR. CEJA AT BEDSIDE TO DISCUSS PLAN OF CARE. ORDERS RECEIVED.
--- NOTE | 2021-07-06 08:55 | NUR ---
AFTER READING CHEST XRAY, DR. CEJA WANTING TO ADVANCE OG TUBE AND ET TUBE. ADVANCED OG 10CM AND ET 2 CM WITH RESPIRATORY THERAPIST, CESAR.
--- NOTE | 2021-07-06 09:50 | NUR ---
CORRINE GARDNER INFORMED THIS NURSE THAT SON FROM [place] AND SON FROM [place] WOULD BE COMING TO VISIT THE PATIENT FOR 30 MINUTES TODAY. THE AGREEMENT IS THAT THEY ONLY GET 30 MINUTES FROM TIME THEY GO INTO THE ROOM.
--- NOTE | 2021-07-06 11:40 | NUR ---
THIS NURSE INFORMED BOTH SONS THAT THEIR VISTING TIME WAS UP AT 1110. THEY SAID THAT THEY WANTED 5 MORE MINUTES AND I EXPLAINED THAT THIS WAS THE TIME FRAME THAT WE HAD ALL AGREED TO, INCLUDING THEM AND THAT THEY NEEDED TO COME OUT OF THE PATIENT'S ROOM. ONE OF THE BROTHERS SAID THEY WOULD BE OUT IN 5 MORE MINUTES AND "YOU CAN CALL SECURITY AND KICK ME OUT. I DON'T CARE." I SAID I CAN AND I WILL. HE SAID "GO AHEAD AND CALL THEM THEN!" THIS NURSE REPORTED TO CORRINE BAIRES AND CORRINE GARDNER WHAT HAD HAPPENED. VIRY SAID SHE CALLED SECURITY AND KENDRA SAID TO GIVE THEM 5 MORE MINUTES. SECURITY CAME AND ESCORTED THE TWO SONS TO [facility]S OFFICE.
--- NOTE | 2021-07-06 17:00 | NUR ---
patient not tolerating being proned. no sedation vacation for today
--- NOTE | 2021-07-06 20:00 | NUR ---
Drilling Machine Operator met with 2 sons earlier today to discuss concerns. Dr. Lott was graciously a part of this meeting; explained current respiratory status need for ventilator/Peep/proning, the OG feedings/nutrition and general medical condition, the serious condition that Mr. Nicole is in, that he may require tracheostomy and peg tube but is is to early to say for sure. Goal is to get him off the ventilator safely, as soon as possible however it is too early to say as this could be 2 days to several weeks. Discussed UE clot and treatment. All questions were answered by Dr. Lott. Son requesting ability to zoom and we can absolutely accomodate this; we will work to create the ability to prop the camera so they can see and talk with their father; explained that we have several iPad type devices which are shared by all COVID patients to have time with family. They verbalize understanding. They have requested a list of all the medication their father is and has been on, Dr. Lott and I were agreeable to provide them this information. Carolyn Mercado MSN TALENT SPECIALIST-BC Several hours later the son from [place] called me on the phone was very angry, saying the Dr and I agreed to continual zoom feed demading that this be arranged and demanding to talk with Dr. Lott and the hospital president. Hung up saying they were coming up. I waited and had a long conversation with the 2 sons; explained that continual zoom feed can not be provided and reitterated that the sister-who is the spokeperson for the family is to call the ICU, talk with Nancy who expecting their call to share the zoom call in process with them. They are asking for interpreter and translator services for their Mother who speaks only Urdu and I shared that we have a services we use to faciliate this and we will absolutely provide this so we can communicate with her. Reminded then that Dr. Lott will call them every 2-3 days with Jacquie being the next day he will call them; the hospitalsts will call them every 1 - 2 days and shared that they rotate physician coverage every Friday. The children are very passoniate wanting their father to get the best care, bathing, cleaning his teeth, face etc. are all important and we absolutely agree! They want to be kept updated and to be talked with in a kind, respectful, + and compassionate manner; I shared this is the expectation that we have of all our associates and apologized for those that have no met their expectations. The conversation was cordial, with expectations set and agreed to. I did talk with Nancy sharing the conversations. The family has my contact information albeit I anticipate a positive experience for them going forward as at this time all concerns have been addressed and resolved with satisfaction. Carolyn Mercado MSN, TALENT SPECIALIST-BS Drilling Machine Operator this is
[2021-07-07] VITALS (297 sets, daily range): BP systolic 75–113; BP diastolic 55–78; PULSE 109–137; TEMP 97.6–98.9; O2SAT 74–100
--- NOTE | 2021-07-07 02:30 | NUR ---
NOTED PATIENT B/P AND MAP LESS THAN PARAMETERS NON INVASIVE INTERVENTIONS UNSUCCESSFUL RESTARTED LEVOPHED AT THIS TIME
[2021-07-07 03:57] LABS: ARTERIAL BLD GAS O2 SATURATION 87.7 % (92-100); ARTERIAL BLD GAS TCO2 CT 29.8; ARTERIAL BLOOD GAS BASE EXCESS 1.7 (-2-2); ARTERIAL BLOOD GAS HCO3 28.2 meq/L (22-26); ARTERIAL BLOOD GAS PCO2 51.8 mmHg (35-45); ARTERIAL BLOOD GAS PO2 56.6 mmHg (80-100); ARTERIAL BLOOD GAS pH 7.35 (7.35-7.45)
--- NOTE | 2021-07-07 04:00 | NUR ---
PATIENT TUBE FEEDING RESIDUAL CHECK WITH 325ML RETURNED TO STOMACH AND ADDITIONAL TUBE FEEDINGS HELD FOR 2 HOURS PER ORDERS
[2021-07-07 05:20] LABS: HEMATOCRIT 41.2 % (42.0-52.0); HEMOGLOBIN 12.9 g/dl (13.5-18.0); MEAN CELL VOLUME 91 fl (80.0-100.0); MEAN CORPUSCULAR HEMOGLOBIN 29 pg (27.0-31.0); MEAN CORPUSCULAR HGB CONC 31 g/dl (33.0-37.0); MEAN PLATELET VOLUME 11.1 fl (7.4-10.4); PLATELET COUNT 226 K/mm3 (130-400); RED BLOOD COUNT 4.53 M/mm3 (4.20-5.60); REDCELL DISTRIBUTION WIDTH-CV 13.7 % (11.5-14.5)
[2021-07-07 05:27] LABS: CALCIUM 8.4 mg/dL (8.4-10.2); CREATININE, serum 1.51 mg/dL (0.72-1.25); PHOSPHOROUS 3.2 mg/dL (2.3-4.7); POTASSIUM 4.4 mmol/L (3.5-4.5)
[2021-07-07 06:19] LABS: BAND 41 % (0-10); LYMPHOCYTE 3 % (20.0-51.0); NEUTROPHILS 53 % (42.0-75.2)
--- NOTE | 2021-07-07 06:38 | NUR ---
PATIENT SEDATION DECREASED AT THIS TIME DUE TO CONTINUED LOW B/P HEART RATE REMAINS TACHY WITH RANGE OF 115-120'S
--- NOTE | 2021-07-07 13:00 | NUR ---
Dr. Lott and CORRINE Talbot met with patient's family to discuss plan of care. No change in plan at this time. Will plan on "zoom" call with family at 1500.
--- NOTE | 2021-07-07 15:59 | NUR ---
HR for majority of this shift has been around 110. Within the last hour HR up to 125-129. 02 saturations have decreased to 90-91% and peak pressures are up to mid to high 30's. ET tube suctioned but no secretions noted. Sedation had been lowered earlier in the shift to attempt to to assess neuro status. Sedation increased but no change in HR noted. Dr. Lott notifed. Will administer 500 ml bolus of LR and increase sedation further. Asked about need for a chest CT. However, as patient is already on weight based lovenox chest CT not indicated at this time.
--- NOTE | 2021-07-07 18:34 | NUR ---
HR up to 130's and 02 intermittently desaturates to 87-88 then back up to low 90's . Dr. Lott in unit to evaluate patient. Will administer an additional 500 ml bolus of LR. Ok to prone patient at this time. Discussed possibility of obtaining a chest CT to rule out a PE, however, creatinine is elevated. Will re-evaluate for need for CT after am labs obtained.
--- NOTE | 2021-07-07 19:56 | NUR ---
Patient having acute hypotension. Discussed with hospitalist and anesthesia paged to place an arterial line. HR also up to 140's and 02 desaturating to low 80's. A second chest xray ordered at this time due to acute change in status. Xray showed a right sided pneumothorax. Dr. Lala called to place a chest tube at this time.
--- NOTE | 2021-07-07 21:30 | NUR ---
1929 NOTED THAT PATIENT B/P SIGNIFICANT DECREASED AT THE SAME TIME RT EXITING ROOM AND STATED THAT SHE FELT LIKE SHE COULD NOT HEAR BREATH SOUNDS ON HIS LEFT SIDE, ENTERED TO ROOM TO ASSESS SITUATION, INCREASEED DOSE OF LEVOPHED AND SET MONITOR TO TAKE B/P EVERY 5 MINUTES, AUSCULATATED LUNGS AND NOTED RIGHT SIDE LUNGS SOUNDS PRESENT AND LEFT SIDE UNABLE TO AUSCULTATE SIGNIFICANT AIR FLOW, NOTIFIED ZAHRA ZACARIAS WHO STATED SHE WAS ON HER WAY TO BEDSIDE CXR COMPLETED AND NOTED PNEUMO TO LEFT SIDE, SURGERY NOTIFIED FOR CHEST TUBE AND ZAHRA ZACARIAS CALLED AND SPOKE WITH PATIENT'S DAUGHTER DELORIS MEJIA, ALSO RECEIVED ORDER FOR ART LINE TO MORE CLOSELY MONITOR PATIENT B/P DUE TO INCREASE LEVOPHED NEEDS TITRATION OF LEVOPHED CONTINUED TO GET AND MAINTAIN B/P WITHIN PARAMETERS WITH MONITORING INCREASED TO EVERY 2 MINUTES PRIOR TO ART LINE BEING OBTAINED CHEST TUBE PLACED BY DR. MILIAN AND CONNECTED TO SUCTION PER VERBAL INSTRUCTION OF DR. MILIAN REPEAT CXR OBTAINED TO CONFIRM APPROPRIATE PLACEMENT ART LINE PLACED BY HEARING CARE PRACTITIONER WITH APPROPRIATE WAVE FORM, LINE ZEROED AND READING CORRELATE WITH MONITOR BP CUFF. MANUAL CUFF PRESSURE FREQUENCY DECREASED TO EVERY 15 MINUTES POST ART LINE INSERTION WILL CONTINUE TO MONITOR PATIENT
--- NOTE | 2021-07-07 21:30 | NUR ---
INCREASED SEDATION TO ATTEMPT FOR PATIENT TO NOT OVERBREATH VENT AND DECREASE HEART RATE
--- NOTE | 2021-07-07 23:55 | NUR ---
2250 ENTERED PATIENT ROOM TO ADMINISTER MEDICATIONS DUE NOTED RAPID BUBBLING IN [employer] AIR LEAK CHAMBER WITH TROUBLE SHOOTING NOTED THAT BUBBLING SIGNIFICANTLY DECREASED WITH CLAMPING OF TUBE BETWEEN PATIENT AND [employer], DRESSING REINFORCED WITH ADDITIONAL PETROLEUM GAUZE, 4 X 4'S AND THEN A ABD PAD WITH FOAM TAPE AND PRESSURE APPLIED, DISCUSSED EVENTS WITH ZAHRA ZACARIAS NOTED THAT AIR LEAK BUBBLING DECREASED BUT NOT RESOLVED, ORDER RECEIVED FOR CHEST X RAY TO ASSESS CHEST TUBE STATUS
[2021-07-08] VITALS (255 sets, daily range): BP systolic 52–110; BP diastolic 36–68; PULSE 90–126; TEMP 97.8–98.8; O2SAT 52–98
--- NOTE | 2021-07-08 | NUR ---
TUBE FEEDINGS RESTARTED AT 2330 AT PREVIOUS RATE, NO RESIDUAL DUE TO PREVIOUS AMOUNT GETTING SPILLED ON ACCIDENT DUE TO INITIATION OF CHEST TUBE AND ART LINE
[2021-07-08 04:04] LABS: HEMATOCRIT 41.1 % (42.0-52.0); HEMOGLOBIN 12.4 g/dl (13.5-18.0); MEAN CELL VOLUME 94 fl (80.0-100.0); MEAN CORPUSCULAR HEMOGLOBIN 28 pg (27.0-31.0); MEAN CORPUSCULAR HGB CONC 30 g/dl (33.0-37.0); MEAN PLATELET VOLUME 11.4 fl (7.4-10.4); PLATELET COUNT 249 K/mm3 (130-400); RED BLOOD COUNT 4.37 M/mm3 (4.20-5.60); REDCELL DISTRIBUTION WIDTH-CV 14.3 % (11.5-14.5)
--- NOTE | 2021-07-08 04:20 | NUR ---
PATIENT NOTED TO HAVE LOW BP TITRATION OF LEVOPHED TO ATTAIN map and sbp goals
[2021-07-08 04:53] LABS: CALCIUM 8.7 mg/dL (8.4-10.2); CREATININE, serum 3.27 mg/dL (0.72-1.25); POTASSIUM 5.6 mmol/L (3.5-4.5)
[2021-07-08 05:08] LABS: ARTERIAL BLD GAS O2 SATURATION 83.7 % (92-100); ARTERIAL BLD GAS TCO2 CT 26.6; ARTERIAL BLOOD GAS HCO3 24.6 meq/L (22-26)
[2021-07-08 06:34] LABS: BAND 44 % (0-10)
[2021-07-08 06:35] LABS: LYMPHOCYTE 11 % (20.0-51.0); NEUTROPHILS 38 % (42.0-75.2)
[2021-07-08 06:36] LABS: PLATELET ESTIMATE NORMAL (NORMAL)
--- NOTE | 2021-07-08 06:47 | NUR ---
RT NOT AVAILABLE AT THIS TIME
--- NOTE | 2021-07-08 06:48 | NUR ---
YANELIS NOT MEETING REQUIREMENTS FOR WEANING TRIAL
--- NOTE | 2021-07-08 06:54 | NUR ---
PATIENT NOT AVAILABLE AT THIS TIME
--- NOTE | 2021-07-08 07:10 | NUR ---
Called to bedside by primary RN, Tricia. BP running 60's systolic despite increasing pressors. [facility] physician contacted and received new orders for a saline bolus and neosynepherine. 02 saturations showing 50's although not a good waveform. Diminished breath sounds noted on the right side. and Dr. Santamaria notified. Continued to be hypotensive and epinephrine drip was also initiated.
--- NOTE | 2021-07-08 07:11 | NUR ---
Initiated javed-synephrine at max dose per Dr. Jones with [facility].
--- NOTE | 2021-07-08 07:11 | NUR ---
Family notified about patient's decline in status; will allow family to come to bedside to see patient at this time.
--- NOTE | 2021-07-08 08:15 | NUR ---
Chest xray shows new right sided pneumo; Dr. Lott placing a narrow bore chest tube. Follow up xray shows improvemnt in aeration of lung. Improvement in BP and HR noted after placement of chest tube.
--- NOTE | 2021-07-08 08:30 | NUR ---
0650 NOTED PATIENT BP DECREASED VIA ART LINE READING ENTERED ROOM AND BEGAN WITH TITRATION OF LEVOPHED CALLED E ICU AND FOR ADDITIONAL STAFF TO ROOM, PRESSURES NOT RESPONDING TO MEDICATIONS ADDITIONAL MEDICATIONS AND FLUIDS PER VERBAL ORDERS BY E ICU DR. AMAYA FAMILY NOTIFIED BY STAFF AND MARCIAL LE ALSO NOTIFIED OF BY STAFF
--- NOTE | 2021-07-08 08:33 | NUR ---
Dr. Kaufman at bedside to place a large bore chest tube for right sided pneumothorax. Complete at 0847 and attached to wall suction. Bloody drainage noted immediatly from line.
--- NOTE | 2021-07-08 08:46 | NUR ---
RESIDUAL FROM TUBE FEEDINGS AT 250 TUBE FEEDINGS PLACED ON HOLD, NOTIFIED ZAHRA ZACARIAS AND OK WITH HOLDING TUBE FEEDINGS AT THIS TIME
--- NOTE | 2021-07-08 08:54 | NUR ---
PATIENT REMAINS TACHYCARDIC AND OVER BREATHING VENT SEDATION VACATION NOT PREFORMED AT THIS TIME
--- NOTE | 2021-07-08 10:00 | NUR ---
Family arrived at bedside. Mother only speaks setswana and therfore Bengali interpretor called and utilized. Explained to family that patient is extremely sick and requiring max support to sustain life functions. Outcome is very poor per Dr. Lott. All medications and reason for chest tube insertions discussed with brake shoe rebuilder to explain to the family. After this discussion family has decided to continue all care and patient remains a full code.
[2021-07-08 10:17] LABS: CALCIUM 6.7 mg/dL (8.4-10.2); CREATININE, serum 3.52 mg/dL (0.72-1.25); MAGNESIUM 2.9 mg/dL (1.6-2.6); PHOSPHOROUS 7.3 mg/dL (2.3-4.7); POTASSIUM 5.2 mmol/L (3.5-4.5)
[2021-07-08 10:20] LABS: MEAN CORPUSCULAR HGB CONC 28 g/dl (33.0-37.0); PLATELET COUNT 190 K/mm3 (130-400); RED BLOOD COUNT 3.57 M/mm3 (4.20-5.60); REDCELL DISTRIBUTION WIDTH-CV 14.3 % (11.5-14.5)
[2021-07-08 10:22] LABS: HEMATOCRIT 36.1 % (42.0-52.0); HEMOGLOBIN 10.1 g/dl (13.5-18.0); MEAN CELL VOLUME 101 fl (80.0-100.0); MEAN CORPUSCULAR HEMOGLOBIN 28 pg (27.0-31.0)
[2021-07-08 10:30] LABS: TROPONIN-I 0.092 ng/mL (0.00-0.033)
--- NOTE | 2021-07-08 10:58 | NUR ---
Family members at bedside praying with patient. Will Allow family to stay until 1130. At that time the mother and one other child will be allowed to stay and the others will step away. Discussed with family and are agreeable to plan.
--- NOTE | 2021-07-08 12:02 | NUR ---
Dr. Lala at bedside to place a central line.
--- NOTE | 2021-07-08 12:41 | NUR ---
Temperature unable to be obtained via axillary or groin. Pt cool to the touch. Warm blankets provided. Dr. Lott notified. Stated he is going to go speak to the family again regarding wishes for care.
--- NOTE | 2021-07-08 13:08 | NUR ---
After warm blankets placed and thermometer increased patient now 90.1 F in his groin. Dr. Lott notified and will place on a sally hugger. BP currenlty with 70's systolic; with all vasopressors maxed out; Dr. Lott aware and had another family meeting. He has made it clear that patient's status is dire and not recoverable. Noted to Dr. lott the patient's pupils are fixed and dilated. He has therefore made a request to make the patient a DNR. Family will discuss this amongst themselves and their terminal operations manager. Awaiting their decision.
--- NOTE | 2021-07-08 14:15 | NUR ---
Family praying at bedside with a manager of loss prevention operations present. Plan to stay in room for 30 minutes and will then discuss with Dr. Lott again about patient status. Family plannnin to make a determination about direction of care.
--- NOTE | 2021-07-08 14:44 | NUR ---
BP on arterial line reading 40's over 20's. Reiterated to family the seriousness of the situation and patient is maxed out on all medications which are supporting basic life functions. Asked if they were ready to discuss with Dr. Lott about direction of care. The two sons made the decision for patient to become a DNR.
--- NOTE | 2021-07-08 14:55 | NUR ---
Heart rate noted to be dropping down to the teens then asystole. No heart sounds detected by two RN's at bedside. Left femoral also auscultated with dopplar and no pulse detected. Time of called at 1458. Dr. Santamaria and Dr. Amin notified. Family at bedside at time of .
[2021-07-08 15:06] LABS: BAND 13 % (0-10); HYPOCHROMIA 3+; LYMPHOCYTE 26 % (20.0-51.0); NEUTROPHILS 56 % (42.0-75.2); NUCLEATED RED BLOOD CELL 5 (0-6); SCHISTOCYTES 1+
[2021-07-08 15:07] LABS: PLATELET ESTIMATE NORMAL (NORMAL); TOXIC GRANULATION PRESENT
--- NOTE | 2021-07-08 16:31 | NUR ---
SW met with the family due to the pt has . Sw went over different options and the family has chosen [facility] in [place]. Carlos gave information to cage supervisor for setup and transportation of body.
--- NOTE | 2021-07-08 17:30 | NUR ---
All invasive lines removed and personal belongings along with yellow ring given to patient's son to take home.
[2021-07-08 18:50] LABS: ARTERIAL BLOOD GAS BASE EXCESS -24.9 (-2-2); ARTERIAL BLOOD GAS HCO3 11.4 meq/L (22-26); ARTERIAL BLOOD GAS PCO2 103.8 mmHg (35-45); ARTERIAL BLOOD GAS PO2 47.3 mmHg (80-100); ARTERIAL BLOOD GAS pH 6.66 (7.35-7.45)
[2021-07-08 18:51] LABS: ARTERIAL BLD GAS O2 SATURATION 50.6 % (92-100)
[2021-07-09 07:47] LABS: PATHOLOGY DIFF REVIEW OK +
== END 2021-07-08 18:00 | disposition expired | DRG 208 ==
LOC: COL.ER 15:37 → ICU 06-28 10:24
PROVIDERS: Family Medicine; Internal Medicine Pulmonary Disease; Nurse Practitioner Family; Student in an Organized Health Care Education/Training Program; ADMIT Student in an Organized Health Care Education/Training Program
PROC: 02HV33Z Insertion of Infusion Device into Superior Vena Cava, Percutaneous Approach (ICD-10-PCS; 2021-06-28)
PROC: XW033E5 Introduction of Remdesivir Anti-infective into Peripheral Vein, Percutaneous Approach, New Technology Group 5 (ICD-10-PCS; 2021-06-28)
PROC: 5A09557 Assistance with Respiratory Ventilation, Greater than 96 Consecutive Hours, Continuous Positive Airway Pressure (ICD-10-PCS; 2021-06-29)
PROC: 5A1945Z Respiratory Ventilation, 24-96 Consecutive Hours (ICD-10-PCS; principal; 2021-07-05)
PROC: 0BH17EZ Insertion of Endotracheal Airway into Trachea, Via Natural or Artificial Opening (ICD-10-PCS; 2021-07-05)
PROC: 05H633Z Insertion of Infusion Device into Left Subclavian Vein, Percutaneous Approach (ICD-10-PCS; 2021-07-08)
PROC: 0W9930Z Drainage of Right Pleural Cavity with Drainage Device, Percutaneous Approach (ICD-10-PCS; 2021-07-08)
PROC: 0W9930Z Drainage of Right Pleural Cavity with Drainage Device, Percutaneous Approach (ICD-10-PCS; 2021-07-08)
DX: U07.1 COVID-19 (principal); J12.82 Pneumonia due to coronavirus disease 2019; J96.01 Acute respiratory failure with hypoxia; E87.2 Acidosis; I82.C11 Acute embolism and thrombosis of right internal jugular vein; I82.B11 Acute embolism and thrombosis of right subclavian vein; I82.A11 Acute embolism and thrombosis of right axillary vein; I82.621 Acute embolism and thrombosis of deep veins of right upper extremity; I82.890 Acute embolism and thrombosis of other specified veins; J93.83 Other pneumothorax; N17.9 Acute kidney failure, unspecified; E87.0 Hyperosmolality and hypernatremia; R73.9 Hyperglycemia, unspecified; T38.0X5A Adverse effect of glucocorticoids and synthetic analogues, initial encounter; I95.9 Hypotension, unspecified; Z87.891 Personal history of nicotine dependence; Z73.0 Burn-out
CPT/HCPCS: 99223-AI; 99232-AI; 99233-AI; 99239; A4314; C1751; J0171; J0330; J0696; J1100; J1650; J1815; J2060; J2250; J2270; J2370; J2543; J2704; J2997; J3010; J7030; J7050; J7060; J7120; Q9967